=== PATIENT | female | born 1960 | race Hispanic/Latino ===

== ENCOUNTER 2018-06-11 10:25 | Emergency (ER) | payer SELFPAY ==
[2018-06-11 11:09] LABS: Calcium 8.3 mg/dL (8.4-10.2)
== END 2018-06-11 13:10 ==
LOC: ED 10:25
DX: I12.0 Hypertensive chronic kidney disease with stage 5 chronic kidney disease or end stage renal disease (principal); Z99.2 Dependence on renal dialysis; Z53.21 Procedure and treatment not carried out due to patient leaving prior to being seen by health care provider
CPT/HCPCS: 36415; 80048